=== PATIENT | male | born 1985 | race African-American/Black ===

== ENCOUNTER 2022-09-07 09:45 | Emergency (ER) | payer OTHER ==
[2022-09-07] MEDS ORDERED: HYDROcodone/Acetaminophen 5/325 mg Tablet ONE (09:54)
[2022-09-07] MEDS ORDERED: Acetaminophen 325 MG TAB ONE ×3 (09:54→09:56)
== END 2022-09-07 11:10 | disposition home or self-care (01) ==
LOC: ERS 09:45
DX: S49.91XA Unspecified injury of right shoulder and upper arm, initial encounter (principal); F17.210 Nicotine dependence, cigarettes, uncomplicated; W26.8XXA Contact with other sharp object(s), not elsewhere classified, initial encounter; Y93.69 Activity, other involving other sports and athletics played as a team or group